=== PATIENT | male | born 1995 | race Caucasian/White ===

== ENCOUNTER 2025-05-28 13:15 | Emergency (ER) | payer OTHER, SELFPAY ==
--- NOTE | ~2025-05-28 | CT_ITS ---
EXAMINATION: CT brain wo con COMPARISON: None HISTORY: headache TECHNIQUE: Axial images were obtained through the brain without IV contrast. CT scan performed using dose optimization techniques including the following automated exposure control; adjustment of mA and/or kV; use of iterative reconstruction technique. Automatic exposure control was used to reduce radiation dose. Permanent radiation dose record is archived to PACS. FINDINGS: No acute infarct or parenchymal hemorrhage. No abnormal mass or mass effect. No midline shift. No extra-axial fluid collections. No hydrocephalus. . Mastoid air cells unremarkable. Sinuses and orbits unremarkable. No acute fracture. No significant facial or scalp soft tissue swelling evident. No radiopaque foreign body is seen. Impression: 1.No acute intracranial abnormality. Reviewed, dictated and finalized at location P. [facility] CO[facility]ATOR Impression: 1.No acute intracranial abnormality.
[2025-05-28 13:20] VITALS: BP 143/81; PULSE 125; RESP 18; TEMP 37.4; O2SAT 98
--- NOTE | 2025-05-28 15:35 | ED.GENADULT ---
HPI - General Adult General Chief complaint: Headache <Marnie Jolley PA-C - Last Filed: 05/28/25 19:10> Stated complaint: headache <Marnie Jolley PA-C - Last Filed: 05/28/25 19:10> Time Seen by Provider: 05/28/25 15:35 <Marnie Jolley PA-C - Last Filed: 05/28/25 19:10> Focused HPI: This is a 30 year old male that presents to the ER for a headache. Reports Ongoing over the last couple of hours. Reports myalgias, weakness. Denies vision changes, vomiting, numbness. GENERAL: Well-appearing, well-nourished, and in no acute distress. HEAD: Normocephalic, atraumatic. CHEST: Clear to auscultation. ?No respiratory distress. HEART: Regular rate and rhythm.? NEURO: ?Alert and oriented x3. Patient screened in triage and initial orders placed.? ?Additional care and disposition to be based upon?diagnostic testing and treatment. <Marnie Jolley PA-C - Last Filed: 05/28/25 19:10> History of Present Illness HPI narrative: I agree with the above HPI <Chacorta Rhodes MD - Last Filed: 05/28/25 21:50> Related Data Allergies/adverse reactions: Allergies Allergy/AdvReac Type Severity Reaction Status Date / Time No Known Allergies Allergy Verified 05/28/25 16:17 <Marnie Jolley PA-C - Last Filed: 05/28/25 19:10> Review of Systems Review of Systems: All systems reviewed & are unremarkable except as noted in HPI and below <Marnie Jolley PA-C - Last Filed: 05/28/25 19:10> Exam Narrative: APPEARANCE: Well appearing, no pain, no distress, well-nourished. HEAD: normocephalic, atraumatic. EYES: PERRLA/EOMI, conjunctivae clear. NOSE: Normal no drainage EARS:TMS clear with good light reflex. THROAT: Pharynx clear, no exudate. NECK: Supple. No adenopathy, no masses. RESPIRATORY: Airway patent, respirations nonlabored. Clear to auscultation bilaterally, no rales, rhonchi, wheezing. CARDIOVASCULAR: Regular rate and rhythm without murmurs rubs or gallops. ABDOMINAL: Soft, nontender, nondistended, normal bowel sounds MUSCULOSKELETAL: Moves all extremities. Strength/ROM intact, No edema, No calf tenderness. NEURO: Alert. Cranial nerves II through XII intact. Good gait. Good coordination SKIN: Warm, dry. Normal Color PSYCHIATRIC: Normal affect/mood. <Chacorta Rhodes MD - Last Filed: 05/28/25 21:50> Course Vital Signs Vital signs: Vital Signs Temperature 99.4 F 05/28/25 13:20 Pulse Rate 125 H 05/28/25 13:20 Respiratory Rate 18 05/28/25 13:20 Blood Pressure 143/81 H 05/28/25 13:20 Pulse Oximetry 98 05/28/25 13:20 Temperature 99.4 F 05/28/25 13:20 Pulse Rate 108 H 05/28/25 18:28 Respiratory Rate 18 05/28/25 18:28 Blood Pressure 136/66 05/28/25 18:28 Pulse Oximetry 98 05/28/25 18:28 Oxygen Delivery Room Air 05/28/25 16:50 <Marnie Jolley PA-C - Last Filed: 05/28/25 19:10> Vital Signs Temperature 99.4 F 05/28/25 13:20 Pulse Rate 125 H 05/28/25 13:20 Respiratory Rate 18 05/28/25 13:20 Blood Pressure 143/81 H 05/28/25 13:20 Pulse Oximetry 98 05/28/25 13:20 Temperature 99.4 F 05/28/25 13:20 Pulse Rate 108 H 05/28/25 18:28 Respiratory Rate 18 05/28/25 18:28 Blood Pressure 136/66 05/28/25 18:28 Pulse Oximetry 98 05/28/25 18:28 Oxygen Delivery Room Air 05/28/25 16:50 <Chacorta Rhodes MD - Last Filed: 05/28/25 21:50> Medical Decision Making MDM Narrative Medical decision making narrative: 30-year-old male presenting emergency department for evaluation for generalized fatigue and headache. 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 Patient denies any fevers. Patient was negative for influenza RSV and for COVID and negative for strep. Head CT was negative. Patient was treated with 1 L of lactated Ringer's, Compazine and Benadryl and did feel improved. After the negative head CT IV Toradol was ordered and patient felt further improved. suspect patient has a viral illness. <Chacorta Rhodes MD - Last Filed: 05/28/25 21:50> Differential Diagnosis Differential Diagnosis: COVID, RSV, influenza, strep throat, headache, dehydration, viral etiology <Chacorta Rhodes MD - Last Filed: 05/28/25 21:50> Vital Signs Vital Signs: Vital Signs Temperature 99.4 F 05/28/25 13:20 Pulse Rate 125 H 05/28/25 13:20 Respiratory Rate 18 05/28/25 13:20 Blood Pressure 143/81 H 05/28/25 13:20 Pulse Oximetry 98 05/28/25 13:20 Temperature 99.4 F 05/28/25 13:20 Pulse Rate 108 H 05/28/25 18:28 Respiratory Rate 18 05/28/25 18:28 Blood Pressure 136/66 05/28/25 18:28 Pulse Oximetry 98 05/28/25 18:28 Oxygen Delivery Room Air 05/28/25 16:50 <Marnie Jolley PA-C - Last Filed: 05/28/25 19:10> Vital Signs Temperature 99.4 F 05/28/25 13:20 Pulse Rate 125 H 05/28/25 13:20 Respiratory Rate 18 05/28/25 13:20 Blood Pressure 143/81 H 05/28/25 13:20 Pulse Oximetry 98 05/28/25 13:20 Temperature 99.4 F 05/28/25 13:20 Pulse Rate 108 H 05/28/25 18:28 Respiratory Rate 18 05/28/25 18:28 Blood Pressure 136/66 05/28/25 18:28 Pulse Oximetry 98 05/28/25 18:28 Oxygen Delivery Room Air 05/28/25 16:50 <Chacorta Rhodes MD - Last Filed: 05/28/25 21:50> Lab Data Lab results reviewed: Yes I reviewed the patient's lab results. <Chacorta Rhodes MD - Last Filed: 05/28/25 21:50> Labs: Lab Results 05/28/25 Range/Units 16:12 Influenza A (RT-PCR) Negative (Negative) Influenza B (RT-PCR) Negative (Negative) RSV (RT-PCR) Negative (Negative) SARS-CoV-2 RNA (RT-PCR) Negative (Negative) Group A Strep (PCR) Not detected (Negative) <Marnie Jolley PA-C - Last Filed: 05/28/25 19:10> Lab Results 05/28/25 Range/Units 16:12 Influenza A (RT-PCR) Negative (Negative) Influenza B (RT-PCR) Negative (Negative) RSV (RT-PCR) Negative (Negative) SARS-CoV-2 RNA (RT-PCR) Negative (Negative) Group A Strep (PCR) Not detected (Negative) <Chacorta Rhodes MD - Last Filed: 05/28/25 21:50> Imaging Data Radiologist's impression: ITS Impressions Head CT 05/28/25 16:58 Impression: 1.No acute intracranial abnormality. <Marnie Jolley PA-C - Last Filed: 05/28/25 19:10> Discharge Plan Discharge Clinical Impression: Headache Qualifiers: Headache type: unspecified Headache chronicity pattern: acute headache Intractability: not intractable Qualified Code(s): R51.9 - Headache, unspecified <Marnie Jolley PA-C - Last Filed: 05/28/25 19:10> Patient Disposition: Home <Marnie Jolley PA-C - Last Filed: 05/28/25 19:10> Condition: Stable <Marnie Jolley PA-C - Last Filed: 05/28/25 19:10> Instructions: Antibiotic Form <Marnie Jolley PA-C - Last Filed: 05/28/25 19:10> Additional Instructions: Drink plenty of water, Tylenol and ibuprofen for headache. Have close follow-up with your primary care physician. If you have any worsening symptoms please call or return to the emergency department. <Mranie Jolley PA-C - Last Filed: 05/28/25 19:10> Patient Language: [place]ican <Marnie Jolley PA-C - Last Filed: 05/28/25 19:10> Follow-up/Referrals: PHYSICIAN NOT ON STAFF,NONSTAFF [Non-Staff] <Marnie Jolley PA-C - Last Filed: 05/28/25 19:10>
[2025-05-28 16:38] VITALS: BP 117/65; PULSE 113; RESP 17; O2SAT 99
[2025-05-28] MEDS: LACTATED RINGERS 1,000 ML 999 ML IV CONT (16:40)
[2025-05-28] MEDS: PROCHLORPERAZINE EDISYLATE 10 MG/2 ML VIAL IV PUSH (16:40)
[2025-05-28 16:50] VITALS: BP 166/79; PULSE 100; RESP 16; O2SAT 99
[2025-05-28 16:53] LABS: Strep Group A RT-PCR NOT DETECTED (Negative)
[2025-05-28 17:05] LABS: Influenza A QL RT-PCR Negative (Negative); Influenza B QL RT-PCR Negative (Negative); RSV RNA, RT-PCR Negative (Negative); SARS-CoV-2 RNA PCR Negative (Negative)
[2025-05-28] MEDS: KETOROLAC 15 MG/ML VIAL (*BKC) IV PUSH (17:53)
[2025-05-28 18:28] VITALS: BP 136/66; PULSE 108; RESP 18; O2SAT 98
--- NOTE | 2025-05-28 18:29 | PC.NURSE ---
Pt. educated that he cannot drive today d/t medications given. Pt. verbalized understanding.
== END 2025-05-28 18:42 | disposition home or self-care (01) ==
PROVIDERS: Physician Assistant; Emergency Provider Emergency Medicine
DX: R51.9 Headache, unspecified (principal); Z20.822 Contact with and (suspected) exposure to COVID-19
CPT/HCPCS: 70450; 87637; 87651; 96361; 96374; 96375; 99284; J0780; J1200; J1885; J7120